=== PATIENT | female | born 1995 | race Hispanic/Latino ===

== ENCOUNTER 2024-03-18 18:21 | Emergency (ER) | payer OTHER ==
[2024-03-18] MEDS ORDERED: GABAPENTIN 300 MG CAP ONE (19:06)
[2024-03-18] MEDS ORDERED: KETOROLAC 30 MG/ML INJ ONE (19:06)
--- NOTE | 2024-03-18 19:07 | RAD REPORT ---
EXAM DESCRIPTION: RAD - Sacrum And Coccyx - 03/18/2024 7:01 pm CLINICAL HISTORY: PAIN COMPARISON: <Comparisons> FINDINGS: No fracture or subluxation.
--- NOTE | 2024-03-18 19:07 | RAD REPORT ---
EXAM DESCRIPTION: RAD - Lumbar Spine 3 Views - 03/18/2024 7:02 pm CLINICAL HISTORY: PAIN Radiculopathy COMPARISON: <Comparisons> FINDINGS: Vertebral body heights appear maintained. No compression fracture noted. Disc spaces are m aintained. No spondylolysis or spondylolisthesis. IMPRESSION: Negative study.
--- NOTE | 2024-03-18 20:02 | ER ---
Nurse's Notes [facility] Name: Radha Martinez Age: 28 yrs Sex: Female : 1995 Arrival Date: 03/18/2024 Time: 18:21 Bed 17 Private MD: Diagnosis: Strain of muscle, fascia and tendon of lower back Presentation: 03/18 18:51 Chief complaint: Patient states: left lower back pain x4 days. denies any other [facility] symptoms or injury. Coronavirus screen: At this time, the client does not indicate any symptoms associated with coronavirus-19. Ebola Screen: No symptoms or risks identified at this time. Initial Sepsis Screen: Does the patient meet any 2 criteria? No. Patient's initial sepsis screen is negative. Does the patient have a suspected source of infection? No. Patient's initial sepsis screen is negative. Risk Assessment: Do you want to hurt yourself or someone else? Patient reports no desire to harm self or others. Onset of symptoms was March 18, 2024. 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 - Infectious Disease History:: Denies. - Social history:: Smoking status: Patient denies any tobacco usage or history of. Screenin:43 [facility] ED Fall Risk Assessment (Adult) History of falling in the last 3 months, me1 including since admission No falls in past 3 months (0 pts) Confusion or Disorientation No (0 pts) Intoxicated or Sedated No (0 pts) Impaired Gait No (0 pts) Mobility Assist Device Used No (0 pt) Altered Elimination No (0 pt) Score/Fall Risk Level 0 - 2 = Low Risk Maintained a safe environment, Provided non-skid footwear, Hourly rounding (assess needs \T\ fall precautionary measures) done. Abuse screen: Denies threats or abuse. Nutritional screening: No deficits noted. Tuberculosis screening: No symptoms or risk factors identified. Assessment: 18:38 General: Appears uncomfortable, well groomed, well developed, well nourished, Behavior me1 is calm, cooperative, appropriate for age, Reports left lower back pain that is pulling in nature, aggravated with movement x 4 days. 18:41 Pain: Complains of pain in left low back Pain does not radiate. Pain currently is 8 out me1 of 10 on a pain scale. Quality of pain is described as pulling Pain began 4 days ago Is continuous. Neuro: Level of Consciousness is awake, alert, obeys commands, Oriented to person, place, time, situation, Appropriate for age. Cardiovascular: Patient's skin is warm and dry. Respiratory: Airway is patent Trachea midline Respiratory effort is even, unlabored, Respiratory pattern is regular, symmetrical. GI: No signs and/or symptoms were reported involving the gastrointestinal system. : No signs and/or symptoms were reported regarding the genitourinary system. Denies burning with urination, urinary frequency. EENT: No signs and/or symptoms were reported regarding the EENT system. Derm: Skin is intact, is healthy with good turgor, Skin is pink, warm \T\ dry. Musculoskeletal: Reports pain in left low back since 4 days ago. Vital Signs: 18:51 BP 106 / 58; Pulse 76; Resp 16 S; Temp 98.3(O); Pulse Ox 100% on R/A; Weight 68.04 kg kc6 (R); Height 5 ft. 2 in. (R); 20:06 BP 100 / 65; Pulse 69; Resp 16; Temp 98.1(O); Pulse Ox 99% ; me1 18:51 Body Mass Index 27.44 (68.04 kg, 157.48 cm) [facility] ED Course: 18:24 Patient arrived in ED. ra3 18:24 Jenny Ybarra PA-C is PHCP. sb4 18:25 Cedrick Roland MD is Attending Physician. sb4 18:33 Sherly Barron, ERI is Primary Nurse. me1 18:43 Patient has correct armband on for positive identification. Bed in low position. Call me1 light in reach. Side rails up X 1. Provided Education on: POC. Verbalized understanding.. Client placed on continuous cardiac and pulse oximetry monitoring. NIBP monitoring applied. Pulse ox on. NIBP on. 18:43 No provider procedures requiring assistance completed. me1 18:52 Triage completed. kc6 18:52 Arm band placed on. kc6 19:02 Sacrum And Coccyx XRAY In Process Unspecified. EDMS 19:03 Lumbar Spine (3 Views) XRAY In Process Unspecified. EDMS 20:14 IV discontinued, intact, bleeding controlled, No redness/swelling at site. Pressure me1 dressing applied. Administered Medications: 19:10 Drug: Gabapentin PO 300 mg PO once Route: PO; me1 20:05 Follow up: Response: No adverse reaction; Pain is decreased me1 19:10 Drug: Ketorolac IM 30 mg IM once Route: IM; Site: right deltoid; me1 20:05 Follow up: Response: No adverse reaction; Pain is decreased me1 Medication: 18:44 VIS not applicable for this client. me1 Outcome: 20:02 Discharge ordered by MD. sb4 20:14 Discharged to home ambulatory, me1 20:14 Condition: stable 20:14 Discharge instructions given to patient, Instructed on discharge instructions, follow up and referral plans. medication usage, Demonstrated understanding of instructions, follow-up care, medications, Prescriptions given X 3, 20:19 Patient left the ED. me1 Signatures: Dispatcher [employer] Vanessa Delatorre RN RN kc6 Jenny Ybarra PA-C PA-C sb4 Sherly Barron RN RN me1 Destini Nowak ra3 Corrections: (The following items were deleted from the chart) 18:42 18:38 General: Appears uncomfortable, well groomed, well developed, well nourished, me1 Behavior is calm, cooperative, appropriate for age, Reports left lower back pain that is pulling in nature, aggravated with movement x 4 days me1 18:52 18:52 Allergies: No Known Allergies; [place] [id number] 18:52 18:52 Home Meds: None; [place] [id number] 18:52 18:52 PMHx: None; [place] [id number] 18:52 18:52 PSHx: None; [place] [id number]
--- NOTE | 2024-03-18 20:02 | EDPHYS ---
Physician Documentation [facility] Name: Radha Martinez Age: 28 yrs Sex: Female : 1995 Arrival Date: 03/18/2024 Time: 18:21 Bed 17 Private MD: ED Physician Cedrick Roland HPI: 03/18 18:57 This 28 yrs old Female presents to ER via Ambulatory with complaints of low sb4 back pain. 18:57 The patient presents with pain that is acute, with no known mechanism of injury. The sb4 symptoms are located in the left low back. The pain does not radiate. The problem was sustained from unknown cause. Onset: The symptoms/episode began/occurred 3 day(s) ago. Modifying factors: The patient symptoms are alleviated by remaining still, the patient symptoms are aggravated by any movement. Associated signs and symptoms: The patient has no apparent associated signs or symptoms. The patient has not experienced similar symptoms in the past. 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 - Infectious Disease History:: Denies. - Social history:: Smoking status: Patient denies any tobacco usage or history of. ROS: 18:57 Constitutional: Negative for fever, chills, and weight loss, sb4 18:57 Back: Positive for pain at rest, pain with movement, of the left low back, 18:57 All other systems are negative, Exam: 18:57 Constitutional: This is a well developed, well nourished patient who is awake, alert, sb4 and in no acute distress. Head/Face: Normocephalic, atraumatic. Eyes: Extra-ocular motions intact. Periorbital areas with no swelling, redness, or edema. ENT: Mucous membranes moist. 18:57 Back: pain, that is mild, of the left low back, ROM is painful, normal spinal alignment noted, CVA tenderness, is absent, Straight leg raises: left lower extremity illicits pain, Vital Signs: 18:51 BP 106 / 58; Pulse 76; Resp 16 S; Temp 98.3(O); Pulse Ox 100% on R/A; Weight 68.04 kg kc6 (R); Height 5 ft. 2 in. (R); 20:06 BP 100 / 65; Pulse 69; Resp 16; Temp 98.1(O); Pulse Ox 99% ; me1 18:51 Body Mass Index 27.44 (68.04 kg, 157.48 cm) kc6 MDM: 18:25 Patient medically screened. sb4 20:01 Data reviewed: vital signs, nurses notes, radiologic studies, and as a result, I will sb4 discharge patient. Counseling: I had a detailed discussion with the patient and/or guardian regarding the historical points, exam findings, and any diagnostic results supporting the discharge/admit diagnosis, radiology results, to return to the emergency department if symptoms worsen or persist or if there are any questions or concerns that arise at home. 03/18 18:47 Order name: Sacrum And Coccyx XRAY; Complete Time: 19:08 sb4 03/18 18:47 Order name: Lumbar Spine (3 Views) XRAY; Complete Time: 19:08 sb4 Administered Medications: 19:10 Drug: Gabapentin PO 300 mg PO once Route: PO; me1 20:05 Follow up: Response: No adverse reaction; Pain is decreased me1 19:10 Drug: Ketorolac IM 30 mg IM once Route: IM; Site: right deltoid; me1 20:05 Follow up: Response: No adverse reaction; Pain is decreased me1 Disposition Summary: 03/18/24 20:02 Discharge Ordered Notes: Location: Home sb4 Problem: new sb4 Symptoms: have improved sb4 Condition: Stable sb4 Diagnosis - Strain of muscle, fascia and tendon of lower back sb4 Followup: sb4 - With: Private Physician - When: As needed - Reason: Recheck today's complaints, Re-evaluation by your physician Discharge Instructions: - Discharge Summary Sheet sb4 - Low Back Sprain or Strain Rehab sb4 Forms: - Patient Portal Instructions sb4 - Leadership Thank You Letter sb4 Prescriptions: - Diclofenac Sodium 75 mg Oral Tablet Sustained Release - take 1 tablet ORAL route 2 times per day; 30 tablet; Refills: 0, Product sb4 Selection Permitted - Medrol (José Luis) 4 mg Oral Tablets, Dose Pack - take 1 tablet ORAL route as directed - follow package instructions; 1 packet; sb4 Refills: 0, Product Selection Permitted - Cyclobenzaprine 5 mg Oral Tablet - take 1 tablet ORAL route 3 times per day As needed; 15 tablet; Refills: 0, sb4 Product Selection Permitted Addendum: 03/20/2024 19:46 Co-signature as Attending Physician, Cedrick Roland MD I reviewed the patient's care r t provided by the Advanced Practice Provider and agree with the diagnosis and treatment plan. Signatures: Dispatcher [employer] EDMS Vanessa Merlos, RN RN kc6 Jenny Ybarra PA-C PALance sb4 Cedrick Roland MD MD rt Sherly Barron RN RN me1 Corrections: (The following items were deleted from the chart) 03/18 18:47 18:47 Sacrum And Coccyx+RAD.RAD.BRZ ordered. EDMS EDMS 18:47 18:47 Lumbar Spine 3 Views+RAD.RAD.BRZ ordered. EDAL EDMS 18:52 18:52 Allergies: No Known Allergies; kc6 kc6 18:52 18:52 Home Meds: None; kc6 kc6 18:52 18:52 PMHx: None; kc6 kc6 18:52 18:52 PSHx: None; kc6 kc6
[2024-03-18 20:26] VITALS: BP 100/65; TEMP 98.1; O2SAT 99
== END 2024-03-18 20:19 | disposition home or self-care (01) ==
LOC: ER 18:21
DX: S39.012A Strain of muscle, fascia and tendon of lower back, initial encounter (principal)
CPT/HCPCS: 72100; 72220; 96372; 99284

== ENCOUNTER 2024-03-22 20:52 | Emergency (ER) | payer OTHER ==
--- OUTSIDE RECORDS SUMMARY | 2024-03-22 20:55 | XMS REPORT | Continuity of Care Document ---
Author Name Unknown Address [address] [place] [address] [address] thconnect Address [address] [place] [address] 1 [address] [place] [address] Care Team Providers Care Elevator Builder Name Role Phone CRUZ LEE Attending Clinician Unavailab CARLA Walters Attending Clinician Unavailable Payers Payer Name Policy Type Policy Number Effective Date Expirati on Date Source [facility] O [place] 94 ON 9 [id number] 2023 00:00:[address] [facility] 2 [id number] 2023 00:00:00 Encounters Start Date/Time End Date/Time Encounter Type Admission Type Attending Clinicians [facility] Facility Care Department Encounter ID Source 2024-02-15 14:30:00 2024-02-15 14:30:00 Outpatient CRUZ LEE [id number] [facility] 2023-09-10 10:00:00 2023-09-10 10:00:00 Outpatient CRUZ LEE [id number] [facility] 2023-08-25 14:30:00 2023-08-25 14:30:00 Outpatient CRUZ LEE [id number] [facility] 2023-08-10 10:30:00 2023-08-10 10:30:00 Outpatient CARLA RAMIREZ [id number] [facility]
--- NOTE | 2024-03-22 22:13 | RAD REPORT ---
EXAM DESCRIPTION: RAD - Knee Left 3 View - 03/22/2024 9:48 pm CLINICAL HISTORY: Left knee pain FINDINGS: No fracture or dislocation is seen.
--- NOTE | 2024-03-22 22:22 | EDPHYS ---
Physician Documentation [facility] Name: Radha Martinez Age: 28 yrs Sex: Female : 1995 Arrival Date: 03/22/2024 Time: 20:52 Bed IW1 Private MD: ED Physician Zafar Rao HPI: 03/22 22:24 This 28 yrs old Female presents to ER via Ambulatory with complaints of Fall kb Injury, Knee Injury. 22:24 Pt is a 28 year old female who presents for knee pain, abrasion and drainage from kb abrasion. States she fell onto knee yesterday and when she took the bandage off today there was drainage. Denies any other injury. 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 Flu vaccine is not up to date. - Infectious Disease History:: Denies. - Social history:: Smoking status: Patient denies any tobacco usage or history of. ROS: 22:23 Constitutional: As per HPI kb Exam: 22:23 Constitutional: This is a well developed, well nourished patient who is awake, alert, kb and in no acute distress. Head/Face: Normocephalic, atraumatic. ENT: Moist Mucous membranes Cardiovascular: Regular rate Respiratory: Respirations even and unlabored. No increased work of breathing. Talking in full sentences Neuro: Awake and alert, GCS 15, oriented to person, place, time, and situation. Moves all extremities. Normal gait. 22:23 Musculoskeletal/extremity: Extremities: grossly normal except: noted in the left knee: abrasion, pain, tenderness, ROM: intact in all extremities, Circulation is intact in all extremities. Sensation intact. Weight bearing: able to fully bear weight, 22:23 Skin: abrasion to left knee with purulent drainage. Vital Signs: 21:07 BP 113 / 73; Pulse 86; Resp 16 S; Temp 98.5(O); Pulse Ox 100% on R/A; Weight 68.04 kg kc6 (R); Height 5 ft. 1 in. (R); Pain 4/10; 21:07 Body Mass Index 28.34 (68.04 kg, 154.94 cm) kc6 21:07 Pain Scale: Adult kc6 MDM: 20:55 Patient medically screened. kb 22:23 Differential diagnosis: abrasion, contusion, fracture. Data reviewed: vital signs, kb nurses notes. Counseling: I had a detailed discussion with the patient and/or guardian regarding the historical points, exam findings, and any diagnostic results supporting the discharge/admit diagnosis, radiology results, the need for outpatient follow up, a family practitioner, to return to the emergency department if symptoms worsen or persist or if there are any questions or concerns that arise at home. 03/22 21:02 Order name: Knee Left 3 View XRAY kb Administered Medications: 22:20 CANCELLED (Other Intervention Used): trimethoprim-sulfamethoxazole(160 mg-800 mg (ds) 1 kb tablet PO once 22:54 Drug: HYDROcodone-acetaminophen PO 5 mg-325 mg 1 tabs PO once Route: PO; vc1 22:54 Follow up: Response: Medication Administered at Departure vc1 22:54 Drug: Cephalexin PO 500 mg PO once Route: PO; vc1 22:54 Follow up: Response: Medication Administered at Departure vc1 Disposition Summary: 03/22/24 22:21 Discharge Ordered Notes: Location: Home kb Condition: Stable kb Diagnosis - Pain in left knee kb - Abrasion of lower leg - knee kb - Local infection of the skin and subcutaneous tissue, unspecified kb Followup: kb - With: Private Physician - When: 2 - 3 days - Reason: Recheck today's complaints, Continuance of care, Re-evaluation by your physician Followup: kb - With: Emergency Department - When: As needed - Reason: Worsening of condition Discharge Instructions: - Discharge Summary Sheet kb - Wound Infection, [id number] kb - Acute Knee Pain, Adult, [id number] kb Forms: - Medication Reconciliation Form kb - Antibiotic Education kb - Prescription Opioid Use kb - Patient Portal Instructions kb - Leadership Thank You Letter kb Prescriptions: - mupirocin 2 % Topical ointment - apply 1 application TOPICAL route 2 times per day; 1 unit; Refills: 0, Product kb Selection Permitted - Cephalexin 500 mg Oral Capsule - take 1 capsule ORAL route every 8 hours for 10 days; 30 capsule; Refills: 0, kb Product Selection Permitted - Diclofenac Sodium 75 mg Oral Tablet Sustained Release - take 1 tablet ORAL route 2 times per day; 30 tablet; Refills: 0, Product kb Selection Permitted Addendum: 03/30/2024 04:53 Co-signature as Attending Physician, Zafar Rao MD I agree with the assessment and c coronel plan of care. Signatures: Dispatcher [employer] Eve Healy, DEFENSIVE FIRE CONTROL SYSTEMS OPERATOR-C DEFENSIVE FIRE CONTROL SYSTEMS OPERATOR-Zafar De La Vega MD MD cha Calcote, Vanessa, RN RN vc1 Vanessa Merlos RN RN kc6 Corrections: (The following items were deleted from the chart) 03/22 22:20 22:20 Trimethoprim-Sulfamethoxazole PO (160 mg-800 mg (DS) 1 tablet PO once ordered. kb kb 22:22 22:21 Pain in right knee kb kb
--- NOTE | 2024-03-22 22:22 | ER ---
Nurse's Notes [facility] Name: Radha Martinez Age: 28 yrs Sex: Female : 1995 Arrival Date: 03/22/2024 Time: 20:52 Bed IW1 Private MD: Diagnosis: Pain in left knee;Abrasion of lower leg-knee;Local infection of the skin and subcutaneous tissue, unspecified Presentation: 03/22 21:07 Chief complaint: Patient states: slipped and fell in the mud yesterday. reports left kc6 knee pain 11/03. Coronavirus screen: At this time, the client does not indicate any symptoms associated with coronavirus-19. Ebola Screen: No symptoms or risks identified at this time. Initial Sepsis Screen: Does the patient meet any 2 criteria? No. Patient's initial sepsis screen is negative. Does the patient have a suspected source of infection? No. Patient's initial sepsis screen is negative. Risk Assessment: Do you want to hurt yourself or someone else? Patient reports no desire to harm self or others. Onset of symptoms was March 22, 2024. 21:07 Method Of Arrival: Ambulatory [facility] 21:07 Acuity: JES 4 kc6 Triage Assessment: 22:55 General: Appears in no apparent distress. uncomfortable, Behavior is calm, cooperative, vc1 appropriate for age. Pain: Complains of pain in left knee Pain does not radiate. EENT: No deficits noted. No signs and/or symptoms were reported regarding the EENT system. Neuro: Level of Consciousness is awake, alert, obeys commands, Oriented to person, place, time, situation, Appropriate for age. Cardiovascular: Capillary refill < 3 seconds Patient's skin is warm and dry. Rhythm is regular. Respiratory: Airway is patent Respiratory effort is even, unlabored, Respiratory pattern is regular, symmetrical, Breath sounds are clear bilaterally. GI: Abdomen is flat, non-distended. : No deficits noted. No signs and/or symptoms were reported regarding the genitourinary system. Derm: Wound noted left knee. Musculoskeletal: Reports pain in left knee. 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 Flu vaccine is not up to date. - Infectious Disease History:: Denies. - Social history:: Smoking status: Patient denies any tobacco usage or history of. Screenin:54 [facility] ED Fall Risk Assessment (Adult) History of falling in the last 3 months, vc1 including since admission Yes- single mechanical fall (1 pt) Confusion or Disorientation No (0 pts) Intoxicated or Sedated No (0 pts) Impaired Gait No (0 pts) Mobility Assist Device Used No (0 pt) Altered Elimination No (0 pt) Score/Fall Risk Level 0 - 2 = Low Risk Oriented to surroundings, Maintained a safe environment, Educated pt \T\ family on fall prevention, incl call for assistance when getting out of bed. Abuse screen: Denies threats or abuse. Nutritional screening: No deficits noted. Tuberculosis screening: No symptoms or risk factors identified. Vital Signs: 21:07 BP 113 / 73; Pulse 86; Resp 16 S; Temp 98.5(O); Pulse Ox 100% on R/A; Weight 68.04 kg kc6 (R); Height 5 ft. 1 in. (R); Pain 4/10; 21:07 Body Mass Index 28.34 (68.04 kg, 154.94 cm) kc6 21:07 Pain Scale: Adult kc ED Course: 20:54 Patient arrived in ED. ra3 20:55 Eve Azul FNP-C [facility] kb 20:55 Zafar Rao MD is Attending Physician. kb 21:08 Triage completed. kc6 21:08 Arm band placed on. kc6 21:49 Knee Left 3 View XRAY In Process Unspecified. EDMS 22:56 Provided Education on: wound care. vc1 22:56 No provider procedures requiring assistance completed. Patient did not have IV access vc1 during this emergency room visit. Administered Medications: 22:20 CANCELLED (Other Intervention Used): trimethoprim-sulfamethoxazole(160 mg-800 mg (ds) 1 kb tablet PO once 22:54 Drug: HYDROcodone-acetaminophen PO 5 mg-325 mg 1 tabs PO once Route: PO; vc1 22:54 Follow up: Response: Medication Administered at Departure vc1 22:54 Drug: Cephalexin PO 500 mg PO once Route: PO; vc1 22:54 Follow up: Response: Medication Administered at Departure vc1 Medication: 22:55 VIS not applicable for this client. vc1 Outcome: 22:21 Discharge ordered by . sarah 22:56 Discharged to home ambulatory, with family, vc1 22:56 Condition: good 22:56 Discharge instructions given to patient, Instructed on discharge instructions, follow up and referral plans. medication usage, Demonstrated understanding of instructions, follow-up care, medications, Prescriptions given X 3, 22:57 Patient left the ED. vc1 Signatures: Dispatcher [employer] EDMS Eve Azul, JESSYC MANAGER TRANSITION-Veronica Baumann RN RN vc1 Vanessa Merlos RN RN kc6 Destini Nowak 3
[2024-03-22] MEDS ORDERED: HYDROCODONE/APAP 5/325 MG TAB ONE (22:29)
[2024-03-22] MEDS ORDERED: CEPHALEXIN 250 MG CAP ONE (22:29)
[2024-03-22 23:35] VITALS: BP 113/73; TEMP 98.5; O2SAT 100
== END 2024-03-22 22:57 | disposition home or self-care (01) ==
LOC: ER 20:52
DX: S80.212A Abrasion, left knee, initial encounter (principal); L08.9 Local infection of the skin and subcutaneous tissue, unspecified
CPT/HCPCS: 99283